=== PATIENT | male | born 1950 | race Caucasian/White ===

== ENCOUNTER 2017-01-23 09:11 | Observation (INO) | payer MEDICARE, OTHER ==
[~2017-01-23] VITALS: Ht 175.3 cm; Wt 101.2 kg
[2017-01-23 10:48] VITALS: BP 129/75; PULSE 53; RESP 18; O2SAT 96
[2017-01-23 10:51] VITALS: PULSE 63
[2017-01-23] MEDS ORDERED: RANO500T3 PO (11:05)
[2017-01-23] MEDS ORDERED: ISOS30TA4 PO (11:05)
[2017-01-23] MEDS ORDERED: NITR0.4T SL (11:05)
[2017-01-23] MEDS ORDERED: SIMV40TA5 PO (11:05)
[2017-01-23] MEDS ORDERED: METO25TA99 PO (11:05)
[2017-01-23] MEDS ORDERED: Atropine 1 mg/10 mL (Code) Syringe IVPUSH PRN (12:25)
[2017-01-23] MEDS ORDERED: Senna-Docusate 8.6-50 mg Tablet PO PRN (12:25)
[2017-01-23] MEDS ORDERED: Heparin 5,000 Unit/mL Inj IVPUSH PRN (12:25)
[2017-01-23] MEDS ORDERED: Alum-Mag Hydrox-Simeth 30 mL Suspension PO PRN (12:25)
[2017-01-23] MEDS ORDERED: Ondansetron 2 mg/mL 2 mL Inj IVPUSH PRN (12:25)
[2017-01-23] MEDS ORDERED: Polyethylene Glycol (PEG) 17 Gm Powder PO PRN (12:25)
--- NOTE | 2017-01-23 12:46 | PCM.CHPCAR ---
Consult Subjective Date of service Jan 23, 2017 Date of admit Jan 23, 2017 at 10:45 Provider Requesting Consult Requesting Provider: Jazmin Mo DO Primary Care Physician Primary Care Physician: Violeta Chief Complaint Chest pain History of Present Illness This is a 66-year-old male with history of known coronary disease diagnosed back in 2005 when he presented with myocardial infarction. Details of that are not available to me at this time. The patient had a recurrent episode back in January 2011. Based on what he can recall it sounds like he had a non-ST elevation myocardial infarction. He presented to a local ER and was eventually transferred over to another facility in [facility]. The patient was taken immediately to the catheterization laboratory and had 3 stents inserted in his mid and distal RCA. His stents were Promus 4.0 x 18 mm, 4.0 x 23 mm, and 4.0 x 18 mm. The patient felt much improved stream thereafter. The patient chronically takes low-dose Imdur and Ranexa for chronic history of angina. The patient was seen by his patient registration manager about a year and a half ago. He had a stress test done about that time which was unremarkable as per the patient. Patient has traveled up to [place] and currently lives in a boat. Apparently he has been noncompliant with his medication over the past few months. He has yet to establish with a primary care physician or patient registration manager in the area. Early in the morning the patient had acute onset of chest discomfort around 4:30 AM. The pain was different from his previous episodes of non-ST elevation myocardial infarctions. This chest pain was a left lower chest wall and wrapped around to his back. It was quite severe. It was associated with shortness of breath and diaphoresis. The the patient after a few hours decided to present to the emergency room at [facility]. The patient had a CT of the chest and abdomen which showed no evidence of aortic dissection or pulmonary embolus. There is evidence for significant coronary calcification. However I think some this coronary calcification could have been misinterpreted for his coronary stents. The chest pain did not resolve after he took 2 nitroglycerin sublingual tablets at home. In the emergency room he was given 2 more and eventually IV morphine which finally helped to decrease his chest discomfort. The patient was started on intravenous heparin. His EKGs were unremarkable. His troponin was negative. I was asked to accept the patient in order for further cardiology workup. When I was talking to the patient patient continued to have some chest discomfort this is 6 out of 10. Although he appeared to be resting comfortably when I was talking to him. The patient had to move multiple times in order to become more comparable. The patient also noted when he took a deep breath and that he had chest discomfort. Review of Systems Review of Systems CONSTITUTIONAL: Negative for fever, weight loss or weight gain. HEENT: Eyes: Negative for glaucoma or cataracts. Ears: Negative pain or loss of hearing. Nose: Negative for nasal congestion. Negative for rhinorrhea or postnasal drip. Mouth: Negative for false teeth. Throat: Negative for masses or hoarseness. Negative for snoring. CARDIOVASCULAR: Positive for chest pain negative for palpitations, near syncope , syncope, PND, or orthopnea. RESPIRATORY: Positive for shortness of breath negative for hemoptysis, COPD, cough. GASTROINTESTINAL: Negative for nausea, vomiting, diarrhea or heartburn. GENITOURINARY: Negative for dysuria. MUSCULOSKELETAL: Negative for osteoarthritis. SKIN: Negative for rashes. NEUROLOGIC: Negative for headaches, blurry vision, CVA, mental status changes. PSYCHIATRIC: Negative for depression. Negative for daytime sleepiness or insomnia. ENDOCRINE: Negative for diabetes or thyroid abnormalities. HEMATOLOGIC: Negative for anemia or blood dyscrasias. PMH Past Medical History 1. Hyperlipidemia 2. Coronary artery disease with history of coronary stents 3. History of non-ST elevation myocardial infarctions 4. Hypertension 5. Chronic stable angina treated with multiple antianginal medical therapy ( metoprolol, Imdur, and Ranexa) Scheduled Isosorbide MN ER (Isosorbide MN ER) 30 Mg Tab.er.24h 30 MG PO QAM (Reported) Metoprolol Succinate ER (Metoprolol Succinate ER) 25 Mg Tab.er.24h 25 MG PO QAM (Reported) Ranolazine ER (Ranexa) 500 Mg Tablet.er 500 MG PO BID (Reported) Simvastatin (Simvastatin) 40 Mg Tablet 40 MG PO HS (Reported) Scheduled PRN Nitroglycerin SL (Nitrostat) 0.4 Mg Tab.subl 0.4 MG SL Q5MIN PRN PRN For Chest Pain (Reported) Current Inpatient Medications Current Medications Sodium Chloride 10 ml 10 ml KERRY IVFLUSH; Start 01/23/17 at 16:30; Status UNV Sodium Chloride 1,000 ml @ 80 mls/hr [id number] IV; Start 01/23/17 at 12:24; Status UNV Atorvastatin Calcium 40 mg HS PO; Start 01/23/17 at 21:00; Status UNV Al Hydrox/Mg Hydrox/Simethicone 30 ml Q6 PRN PO; Start 01/23/17 at 12:25; Status UNV Ondansetron HCl 4-8 mg prn nausea Q4 PRN IVPUSH; Start 01/23/17 at 12:25; Status UNV Senna 1 tablet BID PRN PO; Start 01/23/17 at 12:25; Status UNV Polyethylene Glycol 17 gm DAILY PRN PO; Start 01/23/17 at 12:25; Status UNV Acetaminophen 325 mg Q6 PRN PO; Start 01/23/17 at 12:25; Status UNV Nitroglycerin 0.4 mg Q5MIN PRN SL; Start 01/23/17 at 12:25; Status UNV Morphine Sulfate 1-5 mg prn pain not relie... Q5M PRN IVPUSH; Start 01/23/17 at 12:25; Status UNV Atropine Sulfate 1 mg Q5MIN PRN IVPUSH; Start 01/23/17 at 12:25; Status UNV Heparin Sodium (Porcine) Per Protocol for a... PRN PRN IVPUSH; Start 01/23/17 at 12:25; Status UNV Allergies: Coded Allergies: No Known Allergies (Unverified , 01/23/17) Social History Hx Alcohol Use: NoHx Substance Use: Yes (Daily marijauna) Exam Vital Signs Vital Sign - Last Date Time Temp Pulse Resp B/P Pulse Ox O2 Delivery O2 Flow Rate FiO2 01/23/17 10:51 63 01/23/17 10:48 36.8 18 129/75 96 Room Air Objective GENERAL: Well-appearing, well-nourished and in no acute distress. HEAD: Atraumatic, normocephalic. EYES: Pupils equal round and reactive to light, extraocular movements intact, sclera anicteric, conjunctiva are normal. ENT: TMs normal, nares patent, oropharynx clear without exudates. Moist mucous membranes. NECK: Normal range of motion, supple without lymphadenopathy or JVD. LUNGS: Breath sounds clear to auscultation bilaterally and equal. No wheezes rales or rhonchi. HEART: Regular rate and rhythm without murmurs, rubs or gallops. ABDOMEN: Soft, nontender, normoactive bowel sounds. No guarding, no rebound. No masses appreciated. EXTREMITIES: Normal range of motion, no pitting or edema. No clubbing or cyanosis. NEUROLOGICAL: Cranial nerves II through XII grossly intact. Normal speech, normal gait. PSYCH: Normal mood, normal affect. SKIN: Warm, Dry, normal turgor, no rashes or lesions noted. Assessment & Plan Problems: (1) Chest pain Qualifiers: Chest pain type: chest pain on breathing Qualified Code: R07.1 - Chest pain on breathing Plan: Differential diagnoses are acute coronary syndrome versus pericarditis versus costochondritis. Pulmonary embolism and aortic dissection have been ruled out with CT chest. We will get a urgent echocardiogram to see there is any evidence for possible pericarditis. There is no friction rub on examination. However he did notice that his chest pain would worsen with deep inspiration and certain positional changes. Nitroglycerin sublingual tablets did not relieve his chest discomfort which makes this less suspicious for acute coronary syndrome. If his echo is normal or shows evidence for pericarditis and troponins are negative then we may consider giving him IV Toradol to see this will help with his chest pain. If there is low suspicion that this is acute coronary syndrome then the patient will be scheduled for a treadmill sestamibi tomorrow morning. If it turns out that he has at least moderate to high suspicion for acute coronary syndrome based on echo and EKG and serum troponins then he will need to proceed with a cardiac catheterization. The patient will be nothing by mouth after midnight for either stress test or cardiac catheterization. We will continue with intravenous heparin and restart his home medications. I have taken the liberty of switching his simvastatin to atorvastatin. Status: Acute ICD Code: R07.9 (2) CAD (coronary artery disease) Qualifiers: Coronary Disease-Associated Artery/Lesion type: [place] artery [place] vs. transplanted heart: [place] heart Associated angina: with stable angina Qualified Code: I25.118 - Atherosclerotic heart disease of [place] coronary artery with other forms of angina pectoris Plan: Patient appears to have chronic stable angina because he is taking both Imdur and Ranexa. We will try to obtain more of his cardiology notes from his previous patient registration manager in [facility]. Status: Chronic ICD Code: I25.10 (3) HTN (hypertension) Qualifiers: Hypertension type: essential hypertension Qualified Code: I10 - Essential (primary) hypertension Plan: Stable. Status: Chronic ICD Code: I10 (4) HLD (hyperlipidemia) Qualifiers: Hyperlipidemia type: mixed hyperlipidemia Qualified Code: E78.2 - Mixed hyperlipidemia Plan: We will change him from simvastatin to atorvastatin for more aggressive antilipid therapy. Status: Chronic ICD Code: E78.5 (5) H/O non-ST elevation myocardial infarction (NSTEMI) Plan: Patient appeared to have a non-ST elevation myocardial infarction back in January 2011 when he received 3 coronary stents in his mid and distal RCA. When the process of trying to obtain more information from his previous patient registration manager in [place]. Status: Resolved ICD Code: I25.2 Resuscitation Status: CPR: Attempt Resuscitation Time spent 80 minutes Juni Machado MD Jan 23, 2017 12:45
--- NOTE | 2017-01-23 12:49 | NUR ---
[facility] Pt having 5/10 CP, on heparin gtt, pleasant and conversive in no acute distress. 1130 Dr Machado sees pt, plan for serial trops, labs, cardiac echo today and then depending on results possible stress test or angiogram tomorrow.
[2017-01-23] MEDS: 0.9% Sodium Chloride 1,000 ML IV SCH (12:57)
[2017-01-23] MEDS: MeTOProlol XL 25 mg ER24 Tablet PO SCH (12:57)
[2017-01-23] MEDS: Heparin 25K Unit/500mL 0.45 NS 25,000 UNIT in IV Premix 1 EACH IV SCH (12:58)
[2017-01-23 13:51] LABS: Creatine Kinase 51 U/L (21-232)
[2017-01-23] MEDS: Ranolazine ER 500 mg ER12 Tablet PO SCH ×2 (14:04→19:38)
--- NOTE | 2017-01-23 15:00 | DRSVH ---
[facility] [address] [place] [place] [address] Echocardiogram Report Name: BRAULIO RAO DStudy Date: 01/23/2017 Height: 69 in Hospital Exam Location: [facility] Weight: 223 lb Gender: Male BSA: 2.2 m2 : 1950 Age: 66 yrs BP: 129/75 mmHg Ordering Physician: Kelli Machado Performed By: Aden Horowitz Referring Physician: KELLI MACHADO Interpretation Summary The left ventricle is mildly dilated. The ejection fraction is estimated to be 45-50%. There is hypokinesis of the basal infieor and basal inferolateral segments. There is also hypokinesis of the mid anterolateral segment. Assessment of diastolic parameters indicates a relaxation abnormality of the left ventricle, consistent with normal filling pressures. The right ventricle is normal in size and function. The right ventricular systolic pressure is estimated at 40 mmHg assuming a right atrial pressure of 3 mm Hg. The left atrium is mildly dilated. The right atrium is severely dilated. There is mild to moderate mitral regurgitation. There is no other significant valvular heart disease. The ascending aorta is mildly enlarged. Procedure: A two-dimensional transthoracic echocardiogram with color flow and Doppler was performed. The study quality was technically good. There is no prior echocardiogram noted for this patient. The patient had frequent PVCs during the exam. Left Ventricle: The left ventricle is mildly dilated. Left ventricular wall thickness is at the upper limits of normal. The ejection fraction is estimated to be 45-50%. There is hypokinesis of the basal infieor and basal inferolateral segments. There is also hypokinesis of the mid anterolateral segment. Assessment of diastolic parameters indicates a relaxation abnormality of the left ventricle, consistent with normal filling pressures. Right Ventricle: The right ventricle is normal in size and function. Atria: The left atrium is mildly dilated. The right atrium is severely dilated. The interatrial septum is intact with no evidence for an atrial septal defect. Mitral Valve: The mitral valve leaflets appear borderline thickened, but open well. There is mild to moderate mitral regurgitation. Aortic Valve: The aortic valve is trileaflet. The aortic valve opens well. There is trace aortic regurgitation. Tricuspid Valve: The tricuspid valve is normal. There is mild tricuspid regurgitation. The right ventricular systolic pressure is estimated at 40 mmHg assuming a right atrial pressure of 3 mm Hg. Pulmonic Valve: The pulmonic valve leaflets are thin and pliable; valve motion is normal. There is mild pulmonic regurgitation. There is no other significant valvular heart disease. Great Vessels: The aortic root is normal size. The ascending aorta is mildly enlarged. The pulmonary artery is normal size. The IVC is of normal diameter and collapses greater than 50% with a sniff. This suggests a low right atrial pressure of 3 mm Hg. Pericardium/ Pleura There is no pericardial effusion. There is no pleural effusion. MMode/2D Measurements & Calculations LVIDd: 6.1 cm RA long axis: 6.5 cm LVOT diam: 2.4 cm LVIDs: 4.7 cm LA A2 area: 23.1 cm AoV Opening FS: 22.3 % LA A4 area: 31.8 cm RA area: 30.9 cm EPSS: 1.1 cm LA length (vol) RA vol: 125.1 ml Ao root diam IVSd: 1.0 cm RA : 57.8 ml/m2 LVPWd: 0.89 cmLA vol: 77.2 ml asc Aorta Diam LA vol index Ao Arch Diam (Prox Trans): 3.4 cm IVC diam: 2.0 cm EDV(MOD-sp2) LV sr. diameter/BSA LV sys. diameter/BSA TAPSE: 2.5 cm (cm/m^2): 2.8 (cm/m^2): 2.2 ESV(MOD-sp2) EF(MOD-sp2) Doppler Measurements & Calculations Ao V2 max: 108.8 cm/secMV E max juarez MV E/A: 0.86 TR max juarez Ao max P.7 mmHg : 57.8 cm/sec Med Peak E' Juarez : 304.8 cm/sec Ao mean P.7 mmHg MV A max juarez TR max PG LVOT Max Juarez : 67.3 cm/sec E/E' med: 14.5 : 37.2 mmHg : 70.9 cm/sec Lat Peak E' Juarez PA V2 max : 54.3 cm/sec BANDAR(I,D): 2.7 cm E/E' lat: 9.5 PA mean PG sev ratio: 0.62 E/e' average : 0.55 mmHg MV A dur: 0.14 sec MV dec time: 0.22 sec Ao V2 mean LV V1 max PG PA V2 mean : 78.1 cm/sec : 35.4 cm/sec Ao V2 VTI LV V1 VTI: 15.5 cmPA pr(Accel) : 58.2 mmHg BANDAR(V,D): 2.9 cm2 BANDAR indexed to BSA (cm^2/m^2): 1.3 Reading Physician:PM
[2017-01-23 15:05] LABS: BASOPHILS % (AUTO) 0.3 % (0-3); EOSINOPHILS % (AUTO) 0.3 % (0-5); MONOCYTES % (AUTO) 6.3 % (4-12); Mean Corpuscular Hemoglobin 27.6 pg (27.0-35.0); Mean Corpuscular Volume 85.2 fL (81-100); NEUTROPHILS % (AUTO) 82.9 % (40-74); Platelet Count 138 bil/L (150-400)
--- NOTE | 2017-01-23 15:26 | PCM.HPMED ---
Subjective Date of Service Jan 23, 2017 Primary Provider: Admitting Physician: Jazmin Mo DO Primary Care Physician: Other,Physician Attending Physician: Jazmin Mo DO Admit Status: Admit to [facility] Team (Transfer from [place]) Chief Complaint: Chest pain History of Present Illness: Julian Ortiz is a 66 year old man with a PMH of CAD diagnosed in 2005 after an initial OR managed medically with a subsequent NSTEMI requiring stents x2 to the RCA in 2010. He presents having awoken early this AM with substernal chest pain radiating around the torso along rib 8-9 to the mid axillary line. He states that yesterday he was in his usual state of health, but does relate that 2 weeks ago he "twisted his back" and earlier today he stepped awkwardly off of a boat ramp and landed heavily on his left foot. He denies preceding SOB, AWLLS, PND, orthopnea, or abdominal pain. He continues to suffer from chest pain which has been only minimally responsive to Nitro which was administered concurrently with morphine. At [facility] the patient underwent CT angio chest which ruled out Aortic aneurism and PE. He has had a negative troponin and unremarkable EKG. He underwent ECHO with results as below, which while abnormal are not overtly concerning for ACS. The patient is afebrile and hemodynamically stable. Review of Systems: Comprehensive ROS negative except as listed above. Allergies Coded Allergies: No Known Allergies (Unverified , 01/23/17) Home Medications Isosorbide MN ER (Isosorbide MN ER) 30 Mg Tab.er.24h 30 MG PO QAM (Reported) Metoprolol Succinate ER (Metoprolol Succinate ER) 25 Mg Tab.er.24h 25 MG PO QAM (Reported) Ranolazine ER (Ranexa) 500 Mg Tablet.er 500 MG PO BID (Reported) Simvastatin (Simvastatin) 40 Mg Tablet 40 MG PO HS (Reported) PMH 1. Hyperlipidemia 2. Coronary artery disease with history of coronary stents 3. History of non-ST elevation myocardial infarctions 4. Hypertension 5. Chronic stable angina treated with multiple antianginal medical therapy ( metoprolol, Imdur, and Ranexa) Surgical History none reported Family History Multiple relatives with HTN and high cholesterol Social History Hx Alcohol Use: No Hx Substance Use: Yes (Daily marijauna) Living Arrangement: Other (Lives on a boat with ) Exam Vital Signs Vital Sign - Last Date Time Temp Pulse Resp B/P Pulse Ox O2 Delivery O2 Flow Rate FiO2 01/23/17 10:51 63 01/23/17 10:48 36.8 18 129/75 96 Room Air Exam Gen: A/O x3 pleasant cooperative gentleman in mild acute distress secondary to chest pain Neck: Supple, non tender, Full ROM, no JVD HEENT: PERRL, EOMI, no scleral icterus, no conjunctival pallor CV: RRR, very soft systolic murmur best heard at left sternal border, no rubs or gallops Resp: Lungs CTA BL, no wheezing rales or rhonchi Abd: Soft, non tender, no organomegaly Extr: No cyanosis, clubbing, or edema, distal pulses intact BL Neuro: CN 2-12 grossly intact, no focal neurologic deficit Psych: Appropriate mood and affect, some anxiety about his current chest pain Lab and Diagnostics Labs Item Value Date Time Red Blood Count 5.47 mil/mm3 01/23/17 1300 Mean Corpuscular Volume 85.2 fL 01/23/17 1300 Mean Corpuscular Hemoglobin 27.6 pg 01/23/17 1300 Mean Corpuscular Hemoglobin Concent 32.4 % 01/23/17 1300 Red Cell Distribution Width 15.7 % H 01/23/17 1300 Neutrophils (%) (Auto) 82.9 % H 01/23/17 1300 Lymphocytes (%) (Auto) 10.0 % L 01/23/17 1300 Monocytes (%) (Auto) 6.3 % 01/23/17 1300 Eosinophils (%) (Auto) 0.3 % 01/23/17 1300 Basophils (%) (Auto) 0.3 % 01/23/17 1300 Total Creatine Kinase 51 U/L 01/23/17 1300 Creatine Kinase MB 1.8 ng/mL 01/23/17 1300 Troponin T < 0.010 ug/L 01/23/17 1300 Result Diagram: 01/23/17 1300 12-lead ECG . Sinus rhythm . Paired ventricular premature complexes . Low voltage, extremity leads . Nonspecific T abnormalities, lateral leads . No previous ECG available for comparison . Cardiac Echo Impressions Interpretation Summary The left ventricle is mildly dilated. The ejection fraction is estimated to be 45-50%. There is hypokinesis of the basal infieor and basal inferolateral segments. There is also hypokinesis of the mid anterolateral segment. Assessment of diastolic parameters indicates a relaxation abnormality of the left ventricle, consistent with normal filling pressures. The right ventricle is normal in size and function. The right ventricular systolic pressure is estimated at 40 mmHg assuming a right atrial pressure of 3 mm Hg. The left atrium is mildly dilated. The right atrium is severely dilated. There is mild to moderate mitral regurgitation. There is no other significant valvular heart disease. The ascending aorta is mildly enlarged. Reading Physician:PM . Assessment & Plan Julian Ortiz is a 66 year old man with a PMH of HTN, and CAD s/p stenting in 2010 to the RCA who presents with substernal chest pain with radiation around the flank. The pain was able to be reproduced to some degree with sternal palpation, Trop and ECG reassuring, ECHO as above abnormal but no prior ECHO available for comparison and cardiac history is concurrent with degree of dysfunction. Chest pain with history significant for CAD, POA, acute on chronic. Active -Patient with positive CAD history as above, and ongoing chronic stable angina -This pain feels different to him compared to his usual angina -Patient self reports sporadic medication non compliance over the past few month (taken roughly 75% of the time) -Trop, ECG reassuring: will continue to trend Trop -ECHO as above with EF 45-50%, hypokinesis of basal inferior and inferolateral segments, severely dilated right atrium, and mild to moderate mitral regurgitation -No ECHO available for comparison, the above would be consistent with his cardiac history -CT [place] ruled out PE and aortic pathology -Reproducible chest pain to palpation suggestive of possible costochondritis: patient has had 2 recent jarring twists and impacts which may have caused costal injury -Will likely undergo stress testing tomorrow per cardiology -Continue home Metoprolol, Ranolazine, and Imdur-ER -change Simvastatin to Atorvastatin per cardiology -Morphine available PRN for chest pain -SL nitro PRN for chest pain -Should cardiac workup be negative Toradol and possible OMT will be applied to alleviate musculoskeletal pain Hypertension, POA, chronic. Stable -Continue home BP regimen as above Hyperlipidemia, POA, chronic. Stable -Atorvastatin as above Disposition: Observation, patient will likely be able to DC back to his boat after completion of cardiac evaluation; should he manifest more concerning symptoms or laboratory abnormalities suggestive of ACS will likely need to be converted to inpatient. Pain Evaluation: Adequate Pain Control GI Prophylaxis: Not indicated VTE Prophylaxis: Other (IV heparin) Resuscitation Status: CPR: Attempt Resuscitation Attending Statement The patient was seen and examined together with Dr. Parker on 01/23/2017 and I agree with the history, exam and plan as outlined in the note above. Shreyas Parker DO Jan 23, 2017 15:26 Jazmin Mo DO Jan 25, 2017 15:47
[2017-01-23 15:51] VITALS: BP 133/76; PULSE 66; RESP 20; O2SAT 96
[2017-01-23] MEDS: Sodium Chloride LOK Flush 10 mL Syringe IVFLUSH SCH (16:30)
[2017-01-23 19:33] VITALS: BP 117/81; PULSE 53; RESP 18; O2SAT 97
[2017-01-23 19:46] LABS: Creatine Kinase 47 U/L (21-232)
[2017-01-23 20:00] VITALS: PULSE 58
--- NOTE | 2017-01-23 20:52 | NUR ---
Case Management: ERIN explained to patient at 2039, all questions answered. Signed original placed in chart, copy given to patient. "How Medicare Covers Self-Administered Drugs Given in Hospital Outpatient settings" also given to patient. Maria Teresa Bryant RN
[2017-01-23 23:46] VITALS: BP 120/71; PULSE 56; RESP 18; O2SAT 95
[2017-01-24] MEDS: Sodium Chloride LOK Flush 10 mL Syringe IVFLUSH SCH ×3 (00:30→16:30)
[2017-01-24] MEDS: 0.9% Sodium Chloride 1,000 ML IV SCH ×2 (02:00→12:53)
[2017-01-24 03:35] VITALS: BP 117/76; PULSE 53; RESP 18; O2SAT 97
--- NOTE | 2017-01-24 04:18 | NUR ---
Pain Toradol effective for chest pain for short time. Pt able to sleep quietly for 3 hours before requiring additional morphine dose.
[2017-01-24 07:00] LABS: BASOPHILS % (AUTO) 0.4 % (0-3); EOSINOPHILS % (AUTO) 0.9 % (0-5); MONOCYTES % (AUTO) 7.5 % (4-12); Mean Corpuscular Hemoglobin 27.8 pg (27.0-35.0); NEUTROPHILS % (AUTO) 79.6 % (40-74); Platelet Count 120 bil/L (150-400)
[2017-01-24 07:19] LABS: INR 1.04 ratio
[2017-01-24 07:36] LABS: Magnesium 1.8 mg/dL (1.6-2.6); Phosphorus 3.2 mg/dL (2.5-4.9)
[2017-01-24] MEDS: MeTOProlol XL 25 mg ER24 Tablet PO SCH (08:09)
[2017-01-24] MEDS: Ranolazine ER 500 mg ER12 Tablet PO SCH (08:25)
[2017-01-24] MEDS ORDERED: Isosorbide Mononitrate 30 mg ER24 Tablet PO SCH (08:30)
[2017-01-24 08:43] VITALS: BP 120/66; PULSE 49; RESP 18; O2SAT 98
[2017-01-24 10:14] VITALS: PULSE 60
[2017-01-24 11:38] VITALS: BP 136/83; PULSE 57; RESP 20; O2SAT 96
[2017-01-24 12:42] VITALS: PULSE 64
[2017-01-24] MEDS: Heparin 25K Unit/500mL 0.45 NS 25,000 UNIT in IV Premix 1 EACH IV SCH (12:52)
--- NOTE | 2017-01-24 13:22 | PCM.DIMED ---
Shreyas Parker DO 01/24/17 1322: Discharge Instructions Date of Service Jan 24, 2017 Dates of Hospitalization Jan 23, 2017 at 10:45 Discharge Diagnosis Discharge Diagnosis Chest pain with history significant for Coronary artery disease: Given your history of heart problems we will always take any chest pain symptoms very seriously. We did a thorough cardiovascular workup and have determined that you do not have any actively dangerous process going on at the moment. The most likely diagnosis is a condition called costochondritis, which is an inflammation of the point where the rib joins the breastbone. It is not entirely clear how or why people develop this condition, but it should gradually get better and respond well to anti-inflammatory treatment such as ibuprofen. Hypertension: With your cardiac history it is very important for you to take your medications; while episode appears to have been a false alarm, you can greatly reduce your chances of having a real heart attack in the future by taking your medication as directed. Hyperlipidemia: As above it is very important for you to take your medications regularly, as well as maintain an healthy balanced diet rich in vegetables and fiber. Medication Instructions Additional med instructions You may take ibuprofen 400 mg every 4-6 hours to help control the pain in your chest. Additionally we highly recommend that you take an Aspirin 81 mg every day , this is very important as failure to do so can result in a clot to your stent which could be life threatening. Test Results Test Results Your stress test showed no new abnormalities, there was an area of damaged heart muscle, but this was consistent with your prior heart attack and has likely been present for years. Diet Discharge Diet: Heart Healthy Activity Discharge Activity: No restrictions Call your provider Call your provider for: Fever or Chills, Shortness of breath, Bleeding, Chest pain, Vomitting, Excessive diarrhea, Weakness (unilateral) Patient Instructions Patient Instructions Dr. Machado works at all of the following locations, you can call whichever is most convenient for you [facility] [address] [place] [address] [place], [place] [id number] [facility] [place] [address] [place] [place] [address] Dr. Shreyas Parker can be contacted at the following clinic [facility] [address] [place] [id number] Internal Medicine Follow-up plan Please follow up at the [facility] within 2 weeks for further evaluation. If your chest pain is not improved after a few days of taking ibuprofen please go to the urgent care or discuss this with the doctor who will follow up with you at the clinic. Please follow up with Dr. Machado in 6-8 weeks for further cardiac evaluation. Follow-up Provider: [facility] Follow-up with PCP in: 2 weeks Provider: Juni Machado MD Follow-up in: 6 weeks Jazmin Mo DO 01/25/17 1416: Discharge Instructions Attending's Statement The patient was seen and examined together with Dr. Parker on 01/23/17 and I agree with the history, exam and plan as outlined in the note above. Shreyas Parker DO Jan 24, 2017 13:22 Jazmin Mo DO Jan 25, 2017 14:16
--- NOTE | 2017-01-24 13:27 | PCM.DC.MED ---
Discharge Summary Date of Service Jan 24, 2017 Dates of Hospitalization Date of Hospital Admission Jan 23, 2017 at 10:45 Date of Discharge: Jan 24, 2017 Providers: Admitting Physician: Jazmin Mo DO Primary Care Physician: Other,Physician Attending Physician: Jazmin Mo DO Diagnosis at Time of Discharge Diagnosis at Time of Discharge Chest pain with history significant for Coronary artery disease: Given your history of heart problems we will always take any chest pain symptoms very seriously. We did a thorough cardiovascular workup and have determined that you do not have any actively dangerous process going on at the moment. The most likely diagnosis is a condition called costochondritis, which is an inflammation of the point where the rib joins the breastbone. It is not entirely clear how or why people develop this condition, but it should gradually get better and respond well to anti-inflammatory treatment such as ibuprofen. Hypertension: With your cardiac history it is very important for you to take your medications; while episode appears to have been a false alarm, you can greatly reduce your chances of having a real heart attack in the future by taking your medication as directed. Hyperlipidemia: As above it is very important for you to take your medications regularly, as well as maintain an healthy balanced diet rich in vegetables and fiber. Procedures ECG 12 Lead . Sinus rhythm . Paired ventricular premature complexes . Low voltage, extremity leads . Nonspecific T abnormalities, lateral leads . No previous ECG available for comparison . Cardiac Echo Impression Interpretation Summary The left ventricle is mildly dilated. The ejection fraction is estimated to be 45-50%. There is hypokinesis of the basal infieor and basal inferolateral segments. There is also hypokinesis of the mid anterolateral segment. Assessment of diastolic parameters indicates a relaxation abnormality of the left ventricle, consistent with normal filling pressures. The right ventricle is normal in size and function. The right ventricular systolic pressure is estimated at 40 mmHg assuming a right atrial pressure of 3 mm Hg. The left atrium is mildly dilated. The right atrium is severely dilated. There is mild to moderate mitral regurgitation. There is no other significant valvular heart disease. The ascending aorta is mildly enlarged. Reading Physician:PM . Brief History Julian Ortiz is a 66 year old man with a PMH of CAD diagnosed in 2005 after an initial [place] managed medically with a subsequent NSTEMI requiring stents x2 to the RCA in 2010. He presents having awoken early this AM with substernal chest pain radiating around the torso along rib 8-9 to the mid axillary line. He states that yesterday he was in his usual state of health, but does relate that 2 weeks ago he "twisted his back" and earlier today he stepped awkwardly off of a boat ramp and landed heavily on his left foot. He denies preceding SOB, WALLS, PND, orthopnea, or abdominal pain. He continues to suffer from chest pain which has been only minimally responsive to Nitro which was administered concurrently with morphine. At [facility] the patient underwent CT angio chest which ruled out Aortic aneurism and PE. He has had a negative troponin and unremarkable EKG. He underwent ECHO with results as below, which while abnormal are not overtly concerning for ACS. The patient is afebrile and hemodynamically stable. Hospital Course Julian Ortiz is a 66 year old man with a PMH of HTN, and CAD s/p stenting in 2010 to the RCA who presents with substernal chest pain with radiation around the flank. The pain was able to be reproduced to some degree with sternal palpation, Trop and ECG reassuring, ECHO as above abnormal but no prior ECHO available for comparison. Cardiac history is concurrent with degree of dysfunction observed on ECHO. The patient then underwent treadmill stress testing with results as above. Overall the patient appears to be suffering from likely costochondritis, he was discharged with instructions to use NSAIDs as needed for pain, and given strict return precautions should his pain fail to improve. The patient underwent Pharmacological stress test, which revealed a fixed inferior perfusion defect likely longstanding from previous [place]. For full hospital course see below Chest pain with history significant for CAD, POA, acute on chronic. Active -Patient with positive CAD history as above, and ongoing chronic stable angina -This pain feels different to him compared to his usual angina -Patient self reports sporadic medication non compliance over the past few month (taken roughly 75% of the time) -Trop, ECG reassuring: Trop trend consistently negative -ECHO as above with EF 45-50%, hypokinesis of basal inferior and inferolateral segments, severely dilated right atrium, and mild to moderate mitral regurgitation -No ECHO available for comparison, the above would be consistent with his cardiac history -CT as badin ruled out PE and aortic pathology -Reproducible chest pain to palpation suggestive of possible costochondritis: patient has had 2 recent jarring twists and impacts which may have caused costal injury -Exercise stress test showed fixed perfusion defect, likely longstanding from prior [place] -Continued home Metoprolol, Ranolazine, and Imdur-ER -SL nitro PRN for chest pain -Toradol and OMT was applied to alleviate musculoskeletal pain Hypertension, POA, chronic. Stable -Continued home BP regimen as above Hyperlipidemia, POA, chronic. Stable -Continue home Statin as above Exam Vital Signs (Last) Date Time Temp Pulse Resp B/P Pulse Ox O2 Delivery O2 Flow Rate FiO2 01/24/17 12:42 64 01/24/17 11:38 36.6 20 136/83 96 Room Air Exam Gen: A/O x3 pleasant cooperative gentleman in mild acute distress secondary to chest pain Neck: Supple, non tender, Full ROM, no JVD HEENT: PERRL, EOMI, no scleral icterus, no conjunctival pallor CV: RRR, very soft systolic murmur best heard at left sternal border, no rubs or gallops Chest: Sternum tender to palpation, patient relates this is similar to his chest pain symptoms Resp: Lungs CTA BL, no wheezing rales or rhonchi Abd: Soft, non tender, no organomegaly Extr: No cyanosis, clubbing, or edema, distal pulses intact BL Neuro: CN 2-12 grossly intact, no focal neurologic deficit Psych: Appropriate mood and affect, some anxiety about his current chest pain Test 01/23/17 13:00 01/23/17 18:46 01/24/17 06:45 01/24/17 12:36 Hold Ritter Top Tube Received (Received) Total Creatine Kinase 47U/L (21-232) Creatine Kinase MB 1.8ng/mL (0.0-10.4) Creatine Kinase MB % % (0.0-5.0) Troponin T < 0.010ug/L (0.0-0.011) White Blood Count 5.4th/mm3 (3.8-10.1) Red Blood Count 5.15mil/mm3 (4.40-5.80) Hemoglobin 14.3g/dL (13.8-17.2) Hematocrit 43.8% (41.0-50.0) Mean Corpuscular Volume 85.0fL (81-100) Mean Corpuscular Hemoglobin 27.8pg (27.0-35.0) Mean Corpuscular Hemoglobin Concent 32.6% (32.0-37.0) Red Cell Distribution Width 15.8% (12.3-15.4) Platelet Count 120bil/L (150-400) Neutrophils (%) (Auto) 79.6% (40-74) Lymphocytes (%) (Auto) 11.4% (14-46) Monocytes (%) (Auto) 7.5% (4-12) Eosinophils (%) (Auto) 0.9% (0-5) Basophils (%) (Auto) 0.4% (0-3) Prothrombin Time 11.1sec (8.1-12.5) Prothromb Time International Ratio 1.04ratio Sodium Level 138mEq/L (134-144) Potassium Level 4.2mEq/L (3.5-5.2) Chloride Level 106mEq/L (97-108) Carbon Dioxide Level 18mmol/L (18-29) Blood Urea Nitrogen 13mg/dL (8-27) Creatinine 0.78mg/dL (0.76-1.27) Estimat Glomerular Filtration Rate 106mL/min (>59) Glucose Level 107mg/dL (60-99) Calcium Level 8.9mg/dL (8.5-10.1) Phosphorus Level 3.2mg/dL (2.5-4.9) Magnesium Level 1.8mg/dL (1.6-2.6) Total Bilirubin 0.9mg/dL (0.0-1.2) Aspartate Amino Transf (AST/SGOT) 12U/L (0-50) Alanine Aminotransferase (ALT/SGPT) 10U/L (0-44) Alkaline Phosphatase 76U/L (25-160) Total Protein 5.5g/dL (6.4-8.4) Albumin 3.7g/dL (3.4-5.0) Discharge Medications Discharge Medications Aspirin (Aspirin) 81 Mg Tablet 81 MG PO DAILY Prescribed by: MONIE PARKER DO Isosorbide MN ER (Isosorbide MN ER) 30 Mg Tab.er.24h 30 MG PO QAM (Reported) Metoprolol Succinate ER (Metoprolol Succinate ER) 25 Mg Tab.er.24h 25 MG PO QAM (Reported) Ranolazine ER (Ranexa) 500 Mg Tablet.er 500 MG PO BID (Reported) Simvastatin (Simvastatin) 40 Mg Tablet 40 MG PO HS (Reported) As needed Ibuprofen (Ibuprofen) 600 Mg Tablet 600 MG PO QID PRN PRN For Pain Prescribed by: MONIE PARKER, Ibuprofen (Ibuprofen) 600 Mg Tablet 600 MG PO QID PRN PRN For Pain Prescribed by: MONIE PARKER, DO Nitroglycerin SL (Nitrostat) 0.4 Mg Tab.subl 0.4 MG SL Q5MIN PRN PRN For Chest Pain (Reported) Additional med instructions You may take ibuprofen 400 mg every 4-6 hours to help control the pain in your chest. Followup Plan Disposition: home(back to boat) Follow-up plan Please follow up at the [facility] clinic within 2 weeks for further evaluation. If your chest pain is not improved after a few days of taking ibuprofen please go to the urgent care or discuss this with the doctor who will follow up with you at the clinic. Discharge Diet: Heart Healthy Discharge Activity: No restrictions Follow-up Provider: [facility] Follow-up with PCP in: 2 weeks Provider: Juni Machado MD Follow-up in: 6 weeks Time spent Time spent counseling patient and coordinating discharge > 35 minutes. Attending Statement The patient was seen and examined together with Dr. Parker on 01/23/17 and I agree with the history, exam and plan as outlined in the note above. copies to: [facility] Monie Parker DO Jan 24, 2017 13:27 Jazmin Mo DO Jan 25, 2017 14:20
--- NOTE | 2017-01-24 14:43 | NUR ---
Social work note - Initial assessment Julian Ortiz is a 66 yr old admitted for ACS. EMR reviewed: Pt [place] Medicare and [employer] [place]. His PCP is out of area - states that he will be looking for a PCP [place]. Pt's is DPOA - FILING OR REGISTRY CLERK asked for paperwork. Readmit score is 0. See attached CM initial assessment. FILING OR REGISTRY CLERK met with pt - introduced DC planning and explained SW role. Pt lives on a boat with his . They just returned from a 5 month trip and are anchored in [place]. They have family on [place]. Pt is independent at baseline, no DME, drives. He anticipates dc home with , denies any needs. FILING OR REGISTRY CLERK encouraged Pt to find a PCP for follow up. Pt states he will look into it himself. FILING OR REGISTRY CLERK will follow if needs arise. Pt is hoping to d/c home today if Stress Test is negative. Plan: Home with in [facility]. SAMMI Nagel Addendum: 01/24/17 at 1446 by ANNA LAINEZ SS Amended: Links added.
--- NOTE | 2017-01-24 14:44 | NUR ---
PAIN/STRESS TEST pt continues to need multiple doses of morphine for chest pain. 1440 Jeaneth RN goes to [facility] room 1 to administer 2mg Morphine IV because pt is 8/10 Chest pain. Unable to reassess in a timely fashion because pt is off unit.
--- NOTE | 2017-01-24 15:18 | NUR ---
pt to [facility] 1330 pt goes to [facility] for stress test.
[2017-01-24] MEDS ORDERED: ASPI-973 PO (16:51)
--- NOTE | 2017-01-24 17:16 | DRSVH ---
PROCEDURE: 1 DAY PHARMACOLOGICAL STRESS TEST Rest and pharmacological stress myocardial perfusion SPECT with gated imaging and ejection fraction RADIOPHARMACEUTICAL: 10.4 mCi Tc-99m tetrafosmin IV at rest and 31.0 mCi Tc-99m tetrafosmin IV at pea k effect of pharmacological stress. A [id number] was performed. INDICATIONS: 66 year-old man with chest pain. The patient has known Coronary artery disease with his tory of myocardial infarction in 2016 and 2010. He has had coronary stenting. TECHNIQUE: Radiopharmaceutical was injected at peak stress test, and also at rest. SPECT images wer e obtained. SPECT myocardial perfusion images were displayed in short axis, horizontal long axis, an d vertical long axis views. Gated images were reviewed using [employer] software. COMPARISON: None. CARDIAC STRESS: A pharmacologic stress test was performed under the supervision of an attending staff, using an infus ion of Lexiscan. Hemodynamic data: There is normal blood pressure and heart rate response to pharmacologic stress. Symptoms: The patient had chest heaviness, 5/10, radiating to the left arm at baseline, unchanged wh en Lexiscan infusion. Symptoms improved with Aminophyllin. Aminophylline: 100 mg IV EKG: No diagnostic changes of ischemia; no ectopy. FINDINGS: Raw data: There is good myocardial uptake of radiotracer. No significant motion artifacts. Left ventricle function: Gated images demonstrate normal left ventricular wall thickening. The basal inferior wall is hypokinetic. No transient ischemic dilation. Left ventricle resting end diastolic volume is mildly increased. Left ventricle stress ejection fraction is 44%; normal range is above 4 5%. Myocardial perfusion: There is large, moderately severe, fixed perfusion defect in the basal inferio r wall, consistent with a large myocardial infarction. There is moderate sized, [id number] se oliverio, reversible perfusion defect in the lateral wall, which is resolved on prone imaging, likely cau sed by attenuation artifact. IMPRESSION: Abnormal myocardial perfusion images. 1. There is a large, fixed perfusion defect in the basal inferior wall consistent with myocardial inf arct. 2. A moderate sized perfusion defect in the lateral wall is resolved on prone imaging, likely caused by attenuation artifact. 3. Mild left ventricular enlargement and mildly decreased left ventricle are systolic function. 4. Baseline chest pain. No diagnostic EKG changes for ischemia. PQRS ATTESTATIONS: Measure 322 - Is this imaging test primarily performed on a low-risk surgery patient for preoperative evaluation within 30 days preceding their low-risk non-cardiac surgery? Low-risk surgery is defined as cardiac or myocardial infarction less than 1%, including (but not limited to) endoscopic pr ocedures, superficial procedures, cataract surgery, and excisional breast surgery: Answer: No Measure 323 - Is this imaging test performed primarily for the monitoring of an asymptomatic patient who had percutaneous coronary intervention on the visit date or within 2 years of the visit date? An swer: No Measure 324 - Is this imaging test performed primarily for the initial detection and risk assessment on an asymptomatic, low coronary heart disease patient? Low CHD risk definition = clinicians should consider the maximum number of available patient factors used to estimate risk based on [place] (A TP III criteria), typically age, gender, diabetes, smoking status, and use of blood pressure medicati on, and integrate age appropriate estimates for missing elements, such as LDL or standard blood press ure. Answer: No Dictated by: Sangeeta Batres M.D. on 01/24/2017 at 16:59 Approved by: Sangeeta Batres M.D. on 01/24/2017 at 17:14
[2017-01-24] MEDS ORDERED: IBUP-1827 PO ×2 (17:17→17:41)
== END 2017-01-24 13:27 | disposition home or self-care (01) ==
LOC: INTOOBSV 10:45 → PCC 10:45
PROVIDERS: ADMIT Neuromusculoskeletal Medicine & OMM; ATTEND Neuromusculoskeletal Medicine & OMM
DX: R07.9 Chest pain, unspecified (principal); I25.118 Atherosclerotic heart disease of native coronary artery with other forms of angina pectoris; I10 Essential (primary) hypertension; E78.5 Hyperlipidemia, unspecified; I25.2 Old myocardial infarction; F12.90 Cannabis use, unspecified, uncomplicated; Z95.5 Presence of coronary angioplasty implant and graft; Z79.82 Long term (current) use of aspirin
CPT/HCPCS: 36415; 78452; 80053; 82550; 82553; 83735; 84100; 84484; 85025; 85610; 85730; 93005; 93017; 96374; 96375; 96376; A9502; C8929; G0378; G0379; J0280; J1644; J1885; J2270; J2785; J7030